=== PATIENT | male | born 1985 | race Caucasian/White ===

== ENCOUNTER 2017-07-16 20:24 | Emergency (ER) | payer OTHER ==
[~2017-07-16] VITALS: Ht 172.7 cm; Wt 93.0 kg
[2017-07-16 20:36] VITALS: BP 137/67
--- NOTE | 2017-07-16 20:49 | PHYS DOC ---
Past History Past Medical History: No Pertinent History Past Surgical History: Other Alcohol Use: None Drug Use: None Adult General Chief Complaint Chief Complaint: INSECT BITE [facility] HPI Patient is a 31 year old male who presents with in her and to bug bites on his abdominal wall. He states he's happened this morning. He states he developed a fever 104. He denies taking any aspirin, Tylenol, Motrin. He states the redness is beginning worse today. He states is up-to-date on his tetanus shots, is within the last 5 years. He denies any past medical history, allergies and meds or taking any medicines. He did state he had a trauma and needed a exploratory laparotomy years ago. Review of Systems Review of Systems Constitutional: Denies fever or chills Eyes: Denies change in visual acuity, redness, or eye pain HENT: Denies nasal congestion or sore throat Respiratory: Denies cough or shortness of breath Cardiovascular: No additional information not addressed in HPI GI: Denies abdominal pain, nausea, vomiting, bloody stools or diarrhea : Denies dysuria or hematuria Musculoskeletal: Denies back pain or joint pain Integument: Denies rash or skin lesions Neurologic: Denies headache, focal weakness or sensory changes Endocrine: Denies polyuria or polydipsia Allergies Allergies Allergies Coded Allergies Type Severity Reaction Last Updated Verified No Known Drug Allergies 07/16/17 No Physical Exam Physical Exam Constitutional: Well developed, well nourished, no acute distress, non-toxic appearance. HENT: Normocephalic, atraumatic, bilateral external ears normal, oropharynx moist, no oral exudates, nose normal. Eyes: PERRLA, EOMI, conjunctiva normal, no discharge. Neck: Normal range of motion, no tenderness, supple, no stridor. Cardiovascular:Heart rate regular rhythm, no murmur Lungs & Thorax: Bilateral breath sounds clear to auscultation Abdomen: Bowel sounds normal, soft, no tenderness, no masses, no pulsatile masses. Skin: Warm, dry, 2 areas of erythema 1 right above the umbilicus is probably about 2 cm in diameter with fluctuant center, second one is below the left nipple with 1 cm worth of erythema, Back: No tenderness, no CVA tenderness. Extremities: No tenderness, no cyanosis, no clubbing, ROM intact, no edema. Neurologic: Alert and oriented X 3, normal motor function, normal sensory function, no focal deficits noted. Psychologic: Affect normal, judgement normal, mood normal. Current Patient Data Vital Signs Vital Signs Date Time Temp Pulse Resp B/P (MAP) Pulse Ox O2 Delivery O2 Flow Rate FiO2 07/16/17 20:36 98.8 95 20 96 Room Air EKG EKG [] Radiology/Procedures Radiology/Procedures [] Impressions: Cellulitis Course & Med Decision Making Course & Med Decision Making Pertinent Labs and Imaging studies reviewed. (See chart for details) He does not have a fever and these are 2 small areas of bug bites with mild erythema around it. He states his tetanus shots within the last 5 years. We'll treat with Bactrim for 7 days needs a follow-up with primary care physician. Return precautions given. He is agreeable to plan being discharged in stable condition this time. Dragon Disclaimer Dragon Disclaimer This chart was dictated in whole or in part using Voice Recognition software in a busy, high-work load, and often noisy Emergency Department environment. It may contain unintended and wholly unrecognized errors or omissions. Departure Departure: Impression: Primary Impression: Cellulitis Disposition: HOME, SELF-CARE Condition: STABLE Referrals: NON,STAFF (PCP) Patient Instructions: Cellulitis, [id number] Additional Instructions: Urine infection in your stomach and you will need to take antibiotics for the next 7 days. If you develop high fevers that is not controlled by Tylenol, uncontrolled nausea vomiting, blood in your urine, you start bruising easily, the redness on your stomach gets bigger, you develop a rash on your body, you you have any other concerns, please return back to emergency department. You should follow up your primary care physician within the next 5-7 days. Scripts Sulfamethoxazole/Trimethoprim (BACTRIM 400-80 MG TABLET) 1 Each Tablet 1 TAB PO BID, #14 TAB Prov: DEX BEARD MD 07/16/17 Problem Qualifiers Primary Impression: Cellulitis Site of cellulitis: trunk Site of cellulitis of trunk: abdominal wall Qualified Codes: L03.311 - Cellulitis of abdominal wall DEX BEARD MD Jul 16, 2017 20:49
[2017-07-16] MEDS ORDERED: SMZ/TMP 800/160MG TABLET. PO ONE (21:00)
[2017-07-16] MEDS ORDERED: SULF1TAB23 PO (21:04)
== END 2017-07-16 21:11 | disposition home or self-care (01) ==
LOC: ER 20:24
DX: L03.311 Cellulitis of abdominal wall (principal); S30.861A Insect bite (nonvenomous) of abdominal wall, initial encounter; W57.XXXA Bitten or stung by nonvenomous insect and other nonvenomous arthropods, initial encounter; Y93.89 Activity, other specified; Y99.8 Other external cause status; Y92.89 Other specified places as the place of occurrence of the external cause
CPT/HCPCS: 99283